=== PATIENT | female | born 1980 | race Caucasian/White ===

== ENCOUNTER → 2019-11-15 13:31 | Outpatient (BNVA) | payer BC, SELFPAY | PROVIDERS: Visit Provider Family Medicine | DX: Z30.9 Encounter for contraceptive management, unspecified (principal); G43.709 Chronic migraine without aura, not intractable, without status migrainosus; Z12.4 Encounter for screening for malignant neoplasm of cervix; Z13.220 Encounter for screening for lipoid disorders; Z13.6 Encounter for screening for cardiovascular disorders; Z13.1 Encounter for screening for diabetes mellitus; Z01.419 Encounter for gynecological examination (general) (routine) without abnormal findings; R03.0 Elevated blood-pressure reading, without diagnosis of hypertension; Z30.40 Encounter for surveillance of contraceptives, unspecified | CPT/HCPCS: 88175 ==

== ENCOUNTER → 2020-07-10 14:43 | Outpatient (BNVA) | payer BC, SELFPAY | PROVIDERS: Visit Provider Nurse Practitioner Family | DX: Z11.59 Encounter for screening for other viral diseases (principal) | CPT/HCPCS: 87635 ==

== ENCOUNTER → 2020-12-11 15:39 | Outpatient (BNVA) | payer BC, SELFPAY | PROVIDERS: Visit Provider Family Medicine | DX: Z13.220 Encounter for screening for lipoid disorders (principal); I10 Essential (primary) hypertension; Z13.6 Encounter for screening for cardiovascular disorders; Z13.1 Encounter for screening for diabetes mellitus; F41.9 Anxiety disorder, unspecified | CPT/HCPCS: 80048; 80061 ==

== ENCOUNTER → 2021-01-09 11:17 | Outpatient (BNVA) | payer BC, SELFPAY | PROVIDERS: Referring Provider Family Medicine; Visit Provider Family Medicine | DX: R73.9 Hyperglycemia, unspecified (principal) | CPT/HCPCS: 83036 ==

== ENCOUNTER → 2021-06-17 18:00 | Outpatient (BNVA) | payer BC, SELFPAY | PROVIDERS: PCP Family Medicine; Visit Provider Family Medicine | DX: I10 Essential (primary) hypertension (principal); E11.9 Type 2 diabetes mellitus without complications | CPT/HCPCS: 80053; 80061; 83036 ==

== ENCOUNTER → 2021-07-25 10:17 | Outpatient (BNVA) | payer BC, SELFPAY | PROVIDERS: PCP Family Medicine; Visit Provider Emergency Medicine | DX: J40 Bronchitis, not specified as acute or chronic (principal); R06.02 Shortness of breath | CPT/HCPCS: 71046 ==

== ENCOUNTER → 2021-09-16 15:03 | Outpatient (BNVA) | payer OTHER, SELFPAY | PROVIDERS: PCP Family Medicine; Visit Provider Family Medicine | DX: I10 Essential (primary) hypertension (principal); E11.9 Type 2 diabetes mellitus without complications | CPT/HCPCS: 80053; 83036; 85025 ==

== ENCOUNTER → 2021-12-15 14:23 | Outpatient (BNVA) | payer OTHER, SELFPAY | PROVIDERS: PCP Family Medicine; Visit Provider Family Medicine | DX: F41.9 Anxiety disorder, unspecified (principal); I10 Essential (primary) hypertension; E11.9 Type 2 diabetes mellitus without complications; K64.9 Unspecified hemorrhoids; G43.709 Chronic migraine without aura, not intractable, without status migrainosus; Z30.9 Encounter for contraceptive management, unspecified; B37.3 Candidiasis of vulva and vagina | CPT/HCPCS: 80053; 81000; 83036; 87086 ==

== ENCOUNTER 2021-12-24 12:48 | Outpatient (CLI) | payer OTHER, SELFPAY ==
--- NOTE | 2021-12-24 13:52 | PFTS_ITS ---
Date of Study:12/24/21 Date of Dictation: MECHANICS: Forced vital capacity (FVC) is normal. Forced expiratory volume in one second (FEV1) is normal. FEV1/FVC is normal. FLOW VOLUME LOOP: Normal. LUNG VOLUMES: Total lung capacity (TLC) is normal. Residual volume (RV) is normal. DIFFUSING CAPACITY FOR CARBON MONOXIDE: Normal. INTERPRETATION: The pulmonary function tests are normal. There is no significant postbronchodilator response. MTDD
== END 2021-12-24 12:49 | disposition home or self-care (01) ==
PROVIDERS: PCP Family Medicine; Visit Provider Internal Medicine Critical Care Medicine
DX: R05.3 Chronic cough (principal); U09.9 Post COVID-19 condition, unspecified
CPT/HCPCS: 94060; 94726; 94729; J7611

== ENCOUNTER 2021-12-30 05:39 | Day surgery (SDC) | payer OTHER, SELFPAY ==
[2021-12-29 16:35] VITALS: BMI 39.9
[2021-12-30] VITALS (7 sets, daily range): BP systolic 133–156; BP diastolic 86–97; PULSE 81–110; RESP 16–25; TEMP 36.3–37.2; O2SAT 98–100
--- NOTE | 2021-12-30 06:08 | W.PM.OPSUD ---
Surgery/Procedure H&P Update DATE OF PROCEDURE: December 30, 2021 DATE H&P PERFORMED: 12/24/21 H&P UPDATE INFORMATION: I have reviewed H&P completed within last 30 days, I have examined patient prior to procedure and No changes to prior documentation PREOP DIAGNOSIS: Symptomatic external hemorrhoid PRIMARY INDICATION FOR PROCEDURE: The same PLANNED PROCEDURE: Operation Date: 12/30/21 07:00 Proposed Procedures p Exam Under Anesthesia 27803/79505/k64.54(Not Applicable) - Gabriel Cruz MD s Hemorroidectomy(Not Applicable) - Gabriel Cruz MD
[2021-12-30 06:29] LABS: OR HCG Qualitative Urine Negative (Negative)
[2021-12-30 06:33] LABS: Glucose Point of Care 199 mg/dL (70-110)
[2021-12-30] MEDS: acetaminophen 1,000 MG/100 ML PIGGYBACK 400 MG IV (06:40)
--- NOTE | 2021-12-30 06:49 | P.ANESASSM_ITS ---
Pre-Anesthetic Assessment Height/Weight: Height 1.75 m Weight 122.47 kg Temp Pulse Resp BP Pulse Ox 97.3 F L 81 18 139/97 98 12/30/21 06:10 12/30/21 06:10 12/30/21 06:10 12/30/21 06:10 12/30/21 06:10 Preop Diagnosis: Symptomatic external hemorrhoid Operation Date: 12/30/21 07:00 Proposed Procedures p Exam Under Anesthesia 48304/21277/k64.54(Not Applicable) - Gabriel Cruz MD s Hemorroidectomy(Not Applicable) - Gabriel Cruz MD Last intake: Intake Last Liquid Date 12/30/21 Last Liquid Time 02:30 Last Solid Date 12/29/21 Last Solid Time 21:00 Exam alert, oriented x 3, clear to auscultation bilaterally and regular rate & rhythm Airway Submandibular: within normal limits Mallampati: Class II CV/HEM Hypertension Metabolic Diabetes Mellitus Anesthetic Plan ASA status: 3 Medications/Allergies Home Medications Medication Instructions Recorded Confirmed Last Taken Type ibuprofen 200 mg tablet 200 mg PO Q6H PRN 08/28/21 12/29/21 Unknown History albuterol sulfate 90 mcg/actuation 2 puff INHALATION Q6H PRN #8.5 g 09/16/21 12/29/21 Unknown Rx aerosol inhaler fluoxetine 20 mg capsule 20 mg PO DAILY 90 Days #90 cap 12/15/21 12/29/21 Unknown Rx irbesartan 300 mg tablet 300 mg PO DAILY 90 Days #90 tab 12/15/21 12/29/21 Unknown Rx metformin 500 mg tablet 500 mg PO DAILY 90 Days #90 tab 12/15/21 12/29/21 Unknown Rx metoprolol succinate 50 mg 50 mg PO DAILY 90 Days #90 tab 12/15/21 12/29/21 Unknown Rx tablet,extended release 24 hr norethindrone-eth. estradiol-iron 1 tab PO DAILY 84 Days #84 tab 12/15/21 12/29/21 Unknown Rx 1-20 (5)/1-30(7)/1mg-35mcg(9) tablet (Tri-Legest Fe) sumatriptan succinate 25 mg tablet 25 mg PO Q2H PRN 30 Days #9 tab 12/15/21 12/29/21 Unknown Rx (Imitrex) Allergies Allergy/AdvReac Type Severity Reaction Status Date / Time No Known Allergies Allergy Verified 12/24/21 13:41 [facility] Anesthesia Medical History Anxiety Chronic migraine History of 2019 novel coronavirus disease (COVID-19) History of pneumonia Hypertension Surgical History S/P appendectomy S/P tendon repair left hand Family History Other Cancer Diabetes Denies family history of CAD (coronary artery disease) Hypertension Stroke Social History Smoking and tobacco status: never smoked Second hand smoke exposure: No Alcohol intake: current Alcohol intake frequency: holidays/special occasions only Desire information about alcohol rehabilitation?: No Desire information about substance/drug rehabilitation?: No History of recent travel: No Female Reproductive History Date of last menstrual period: 12/29/21 Spontaneous abortions: No Data Anesthesia Cardiac Studies: No Data to Display
[2021-12-30] MEDS: piperacillin-tazobactam 3.375 GM in sodium chloride 0.9% (plus) 50 ML IV (07:03)
[2021-12-30] MEDS: sodium chloride 0.9% 1,000 ML 30 ML IV (07:05)
--- NOTE | 2021-12-30 07:49 | PM.OP ---
Operative Report Date of procedure: December 30, 2021 Pre-op diagnosis: Preop Diagnosis Symptomatic external hemorrhoid Post-op diagnosis: same Post-op findings: Right lower lateral external hemorrhoid Anterior skin tag Procedure done: Examination under anesthesia with hemorrhoidectomy Implants: Packing in the form of Xeroform and Surgicel Specimens removed/disposition: Right lower lateral external hemorrhoid and anterior skin tag Surgeon: Gabriel Cruz MD Assistant Clinical Nurse Manager: instrument repair technician Jessica Circulating nurse Yamel Anesthesia: General (Dr. Hoang) Estimated blood loss (mL): 5 Procedure: Patient was identified in the holding area, was taken to the OR placed first in supine position,IV antibiotics were given with induction time-out was done verifying the patient's name, date of , and procedure, all were in agreement. General anesthetic was administered by the anesthesia provider in the form of LMA patient was placed in left lateral position SCDs were on and functioning. All pressure points were padded and patient was appropriately secured to the table. Prep and drape of the perineum was done under the usual sterile technique Perianal examination showed right lower lateral lateral external hemorrhoid, and anterior skin tag .Following that a digital rectal examination was done and the was no evidence of clinically palpable anal masses. Injection of 30 mL of Exparel to block the pudendal nerve on both sides,guiding point was the ischial spine on each side located by the examining finger A lubricated self-retaining proctoscope was inserted, evidence of right lower lateral external hemorrhoid below the dentate line. Started by introducing a wet sponge to prevent any residual colon prep from contaminating the site of the excision, and under direct visualization I started dissecting the right lower lateral hemorrhoid tissues after application of hemostats,dissection was carried by using the harmonic scalpel, excised tissues were sent for permanent pathology, followed by running 3-0 chromic catgut. Following that attention was deviated towards the anterior skin tag that was excised in the same technique and running 3-0 chromic catgut was achieved. Hemostasis was achieved, irrigation was done, sponge was retrieved. Followed by irrigation.A piece of Surgicel /piece of Xeroform impregnated with lubricant jelly was placed in the anal canal, attached to 2-0 silk suture, to help retrieving it by the patient later on. ABDs were applied followed by surgical pants Patient was repositioned to supine position, counts of instruments,needles and sponges were completed at the end of the procedure Patient was taken to the recovery area in stable condition I was present for the whole entire procedure
--- NOTE | 2021-12-30 08:18 | SUR.PHASEI ---
0801 PT TO PACU 5 WARM BLANKETS TO PT, PT AWAKES TO VOICE VERBALLY DENIES PAIN AND NAUSEA, MONITOR SR NO ECTOPY, ABDOMEN SOFT, RECTAL PACKING D/I IV TO RT FOREARM #20 WITH NS 300ML UP AT KVO RATE PER GRAVITY, BILAT SCDS ON.
[2021-12-30] MEDS: HYDROcodone-acetaminophen 5-325 mg Tablet 1 TAB PO (08:48)
--- NOTE | 2021-12-30 17:42 | ANE.PACU2 ---
Inpatient post-anesthesia follow up: Airway intact: Yes Vital signs: Temperature 98.1 F Pulse Rate 90 Respiratory Rate 18 Blood Pressure 145/86 Pulse Oximetry 99 Oxygen Delivery Me thod Room Air Oxygen Flow Rate 8 Fraction of Inspir ed Oxygen Hydration adequate: Yes Nausea and vomiting: No Pain level: 1 Mental status: Baseline
== END 2021-12-30 09:05 | disposition home or self-care (01) ==
PROVIDERS: Anesthesiology; PCP Family Medicine; Visit Provider Surgery
PROC: (CPT 46260; principal; 2021-12-30 07:00)
PROC: (CPT 46260; 2021-12-30 07:00)
DX: K64.8 Other hemorrhoids (principal); K64.4 Residual hemorrhoidal skin tags; I10 Essential (primary) hypertension
CPT/HCPCS: 46260; 36416; 81025; 82962; 84703; 88304; C9290; J0330; J2001; J2250; J2370; J2405; J2543; J2704; J3010; J3490; J7030

== ENCOUNTER → 2022-03-12 13:09 | Outpatient (BNVA) | payer OTHER, SELFPAY | PROVIDERS: PCP Family Medicine; Visit Provider Family Medicine | DX: N92.6 Irregular menstruation, unspecified (principal); I10 Essential (primary) hypertension; G43.709 Chronic migraine without aura, not intractable, without status migrainosus; E11.9 Type 2 diabetes mellitus without complications | CPT/HCPCS: 80048; 81025; 83036 ==

== ENCOUNTER → 2022-06-08 13:43 | Outpatient (BNVA) | payer OTHER, SELFPAY | PROVIDERS: PCP Family Medicine; Visit Provider Family Medicine | DX: Z13.220 Encounter for screening for lipoid disorders (principal); I10 Essential (primary) hypertension; E11.9 Type 2 diabetes mellitus without complications; F41.9 Anxiety disorder, unspecified; Z13.6 Encounter for screening for cardiovascular disorders; G43.709 Chronic migraine without aura, not intractable, without status migrainosus; B37.2 Candidiasis of skin and nail | CPT/HCPCS: 80048; 80061; 83036; 83721 ==

== ENCOUNTER → 2022-09-22 10:08 | Outpatient (BNVA) | payer OTHER, SELFPAY | PROVIDERS: PCP Family Medicine; Visit Provider Family Medicine | DX: E11.9 Type 2 diabetes mellitus without complications (principal); I10 Essential (primary) hypertension | CPT/HCPCS: 80048; 83036 ==

== ENCOUNTER 2022-10-08 12:25 | Outpatient (CLI) | payer OTHER, SELFPAY ==
--- NOTE | 2022-10-08 13:00 | MM_ITS ---
WS: [id number] Bilateral screening 3D tomosynthesis digital mammogram, 10/08/2022 Clinical Data: Z12.39 - Encounter for other screening for malignant neop... Comparison: None. Findings: The breast parenchymal pattern shows fat replacement. No spiculated masses or clustered calcification s are seen. There are no secondary signs of carcinoma. MM/[place] [id number] Impression: 1. Negative bilateral mammogram with no prior exam for review. 2. Recommend annual screening mammograms. BIRADS: 1-Negative FOLLOW UP: 1 Year Follow-up The CAD gas meter checker was used.
== END 2022-10-08 12:26 | disposition home or self-care (01) ==
LOC: RAD 12:25
PROVIDERS: PCP Family Medicine; Visit Provider Family Medicine
DX: Z12.31 Encounter for screening mammogram for malignant neoplasm of breast (principal)
CPT/HCPCS: 77063; 77067

== ENCOUNTER → 2022-12-05 14:17 | Outpatient (BNVA) | payer OTHER, SELFPAY | PROVIDERS: PCP Family Medicine; Visit Provider Nurse Practitioner Family | DX: R39.9 Unspecified symptoms and signs involving the genitourinary system (principal) | CPT/HCPCS: 81000 ==